=== PATIENT | male | born 1995 | race Caucasian/White ===

== ENCOUNTER 2017-04-21 22:26 | Emergency (ER) | payer SELFPAY ==
[~2017-04-21] VITALS: Ht 180.3 cm; Wt 54.9 kg
[2017-04-21] MEDS ORDERED: POLYTRIM OP SOL10 ML OPHTHALM (22:52)
--- NOTE | 2017-04-21 22:53 | Emergency Room Report ---
History of Present Illness General Chief Complaint: Eye Problems Source: Patient Present Illness [facility] This is a 21-year-old male with no past medical history. He presents with chief complaint of eye pain. He was diagnosed with conjunctivitis last night and urgent care. Was given prescription for antibiotic drops and amoxicillin. He woke up it. A little worse and little itchy. He came into for recheck. No fever chills but no nausea no vomiting. Slight blurry vision. A lot of discharge. Allergies: Coded Allergies: No Known Allergies (Unverified , 04/21/17) Patient History Past Medical History: see triage record, old chart reviewed Past Surgical History: none Pertinent Family History: none Social History: Denies: smoking Immunizations: other Reviewed Nursing Documentation: PMH: Agreed, PSxH: Agreed Review of Systems Eye: Reports: eye pain, blurred vision, discharge ENT: Denies: ear pain, nose congestion, throat swelling Respiratory: Denies: cough, shortness of breath Cardiovascular: Denies: chest pain, palpitations Gastrointestinal: Denies: abdominal pain, diarrhea, nausea, vomiting Musculoskeletal: Denies: back pain, joint pain Skin: Denies: rash Neurological: Denies: headache, numbness Endocrine: Denies: increased thirst, increased urine Hematologic/Lymphatic: Denies: easy bruising All Other Systems: negative except mentioned in HPI Physical Exam Vital Signs Date Time Temp Pulse Resp B/P (MAP) Pulse Ox O2 Delivery O2 Flow Rate FiO2 04/21/17 22:30 98.1 76 18 115/72 100 Room Air vitals normal Sp02 EP Interpretation: reviewed, normal General Appearance: well appearing, no apparent distress, alert Head: normocephalic, atraumatic Eyes: bilateral eye PERRL, bilateral eye EOMI, bilateral eye other - Bilateral conjunctivitis injected. Copious amount of yellowish discharge. ENT: hearing grossly normal, normal pharynx Neck: full range of motion, supple, no meningismus Respiratory: chest non-tender, lungs clear, normal breath sounds Cardiovascular #1: regular rate, rhythm, no murmur Gastrointestinal: normal bowel sounds, non tender, no mass, no organomegaly, no bruit, non-distended Musculoskeletal: back normal, gait/station normal, normal range of motion Psychiatric: mood/affect normal Skin: warm/dry Medical Decision Making Diagnostic Impression: Primary Impression: Conjunctivitis Qualified Codes: H10.33 - Unspecified acute conjunctivitis, bilateral ER Course Patient presents with conjunctivitis. Most likely adenovirus. Reassurance. No evidence of foreign body or globe rupture. We'll discharge him. Told patient to stop amoxicillin. Last Vital Signs Date Time Temp Pulse Resp B/P (MAP) Pulse Ox O2 Delivery O2 Flow Rate FiO2 04/21/17 22:30 98.1 76 18 115/72 100 Room Air Status: improved Disposition: HOME, SELF-CARE Condition: Stable Scripts Polymyxin/Trimethoprim (Polytrim Eye Drops) 10 Ml Drops 2 DROP OPHTHALM THREE TIMES A DAY, #1 EA Instill in affected eye for 7 days Prov: RO WINKLER M.D. 04/21/17 Patient Instructions: Bacterial Conjunctivitis, [id number] Additional Instructions: Stop amoxicillin. Continue with your antibiotic drops. If not better in a week , use Polytrim drops. Followup your doctor as needed in 7 days. Return if worse. RO WINKLER M.D. Apr 21, 2017 22:53
[2017-04-21 23:04] VITALS: BP_SYST 115; BP_SYST 124; BP_DIAS 72; BP_DIAS 91
== END 2017-04-21 23:04 | disposition home or self-care (01) ==
LOC: EMR 22:45
DX: H10.9 Unspecified conjunctivitis (principal)
CPT/HCPCS: 99283